=== PATIENT | female | born 1950 | race Two or more races ===

== ENCOUNTER 2024-09-21 17:29 | Emergency (ER) | payer OTHER, SELFPAY ==
--- NOTE | 2024-09-21 17:40 | PC.NURSE ---
ROXANNE; per report, PT COMING FROM [facility]. PT HAS ABOUT 3-4 BEERS WHEN PT STEPPED OUTSIDE, GOT DIZZY AND FELL BACKWARD. PT HIT THE BACK OF HEAD. BLEEDING CONTROLLED; NO LOC. PT HAS HX COPD AND BRAIN ANEURYSM. PT TAKES MEDS AT HOME FOR COPD. PT CONNECTED TO MONITORS AT THIS TIME.
[2024-09-21 17:41] VITALS: BP 116/55; PULSE 74; PULSE 79; RESP 18; TEMP 36.8; O2SAT 97; O2SAT 98; BMI 24.3
--- NOTE | 2024-09-21 18:00 | EKG_ITS ---
[facility] Test Date: 2024-09-21 Pat Name: FREIDA HERRING Department: Room: - Gender: Female Nursing Education Specialist: : 1950 Requested By: Moe Ness Order Number: [id number] Reading MD: Moe Ness Measurements Intervals [place] Rate: 79 P: 50 IL: 167 QRS: 61 QRSD: 81 T: 63 QT: 395 QTc: 453 Interpretive Statements SINUS RHYTHM No previous ECG available for comparison /store/S0/[id number]/ecg/[id number].pdf
--- NOTE | 2024-09-21 18:54 | XR_ITS ---
Examination: CT brain head without contrast. 2-D sagittal coronal reconstructions Date and time of exam:September 21, 2024 1904 hrs. Indications: Patient loss of consciousness today, fell with large hematoma posterior head CTDI: vol (mGy):47.7 DLP: (mGycm):960 Technique: Multiple CT axial sections of the brain have been obtained, 5 mm slice thickness. Contrast has not been administered. 2-D sagittal, coronal reconstructions have been obtained Low dose protocols were performed. One or more of the following dose reduction techniques were used; automated exposure control, adjustment of the mA and/or KV according to patient size, use of iterative reconstruction technique. Findings: No significant ventricular enlargement. 10 mm low-density lesion posterior right parietal occipital lobe, axial image 25 consistent with infarct, which may be acute Intra-axial or extra-axial hemorrhage density is not seen. No mass effect or midline shift Basal cisterns are not remarkable. Fourth ventricle is midline. Cranial vault intact. Impression: Negative for acute hemorrhage, mass effect or midline shift 10 mm infarct posterior right parietal occipital lobe, which may be acute, clinical correlation advised, consider brain MRI follow-up stroke protocol
--- NOTE | 2024-09-21 18:55 | XR_ITS ---
Examination: AP chest single view Technique one AP portable upright chest single view Exam date and time: September 13, 2024 1912 hrs. Indications: COPD history with patient fall today dizziness Findings: Normal heart size No aspiration pneumonia No pulmonary edema Prominent osteopenia Accentuation bronchovascular markings Impression: Bronchitis pattern
--- NOTE | 2024-09-21 18:55 | PD.EDFALL ---
ED Fall Injury RME/HPI General Chief Complaint: Fall Stated Complaint: FALL Time Seen by Provider: 09/21/24 18:51 Arrival date/time: 09/21/24 17:29 This is a 74-year-old female that is brought to the emergency room today because of a fall. Patient [place] and she had approximately 3 beers-4 and felt fine but once she walked outside in the wind hit her she said she felt dizzy and fell and hit the back of her head. Patient denies any loss of consciousness. Patient denies dizziness at this time. Patient reports a history of COPD, high blood pressure, and a brain aneurysm and is status post coils per patient. Review of Systems Review of Systems Systems Reviewed: All systems reviewed, normal except as documented Past Medical History Past Medical History Comments PMH COMMENT: SEE HPI ED Exam General General appearance: Present alert and in no apparent distress Head Head exam: Present other (SMALL SUPERFICIAL LACERATION TO BACK OF HEAD, BLEEDING CONTROLLED) Eye Eye exam: Present normal appearance, PERRL and EOMI ENT ENT exam: Present normal exam, normal oropharynx and mucous membranes moist Neck Neck exam: Present normal inspection, full ROM and trachea midline Chest Chest inspection: Present normal inspection and symmetric chest wall rise Respiratory Respiratory exam: Present normal lung sounds bilaterally Cardiovascular Cardiovascular exam: Present regular rate, normal rhythm and normal heart sounds Abdominal Exam Abdominal exam: Present soft Extremities Exam Extremities exam: Present normal inspection and full ROM Back Exam Back exam: Present normal inspection and full ROM Neurological Exam Neurological exam: Present alert, oriented X3 and CN II-XII intact Psychiatric Psychiatric exam: Present normal affect and normal mood Skin Skin exam: Present warm, dry, intact and normal color Course Quality Measures none Orders Category Date Time Status EKG (ED ONLY) *Do not use* NOW Care 09/21/24 18:[address] head/brain wo con Stat Exams 09/21/24 18:54 Completed EKG (ED Only) Stat Exams 09/21/24 18:00 Draft XR chest 1V Stat Exams 09/21/24 18:55 Completed BNP [B-Type Natriuretic Peptide] Stat Lab 09/21/24 18:02 Completed CBC Stat Lab 09/21/24 18:02 Completed Comprehensive Metabolic Panel Stat Lab 09/21/24 18:02 Completed PT [Prothrombin Time with INR] Stat Lab 09/21/24 18:02 Completed Troponin I Stat Lab 09/21/24 18:02 Completed Acetaminophen Tab [Tylenol ES Tab] Med 09/21/24 20:56 Discontinued 1,000 mg PO X1 ONE Vital Signs Vital signs: Vital Signs Temperature 98.2 F 09/21/24 17:41 Pulse Rate 79 09/21/24 17:41 Respiratory Rate 18 09/21/24 17:41 Blood Pressure 116/55 L 09/21/24 17:41 Pulse Oximetry (%) 97 09/21/24 17:41 Oxygen Delivery Method Room Air 09/21/24 17:41 Procedures -ED EKG Interpretation #1: Date of EK09/21/24 Time of EK:20 Rate: 79 Interpretation: Interpreted by me (Sinus rhythm) EKG Impression: No ectopy, Normal QRS and Normal intervals Fall MDM Narrative MDM Narrative:: cHEST X RAY SHOWS: Findings: Normal heart size No aspiration pneumonia No pulmonary edema Prominent osteopenia Accentuation bronchovascular markings Impression: Bronchitis pattern is also ct HEAD no FINDINGS Findings: No significant ventricular enlargement. 10 mm low-density lesion posterior right parietal occipital lobe, axial image 25 consistent with infarct, which may be acute Intra-axial or extra-axial hemorrhage density is not seen. No mass effect or midline shift Basal cisterns are not remarkable. Fourth ventricle is midline. Cranial vault intact. Impression: Negative for acute hemorrhage, mass effect or midline shift 10 mm infarct posterior right parietal occipital lobe, which may be acute, clinical correlation advised, consider brain MRI follow-up stroke protocol Discussed ct results with he did not feel that a noncontrast ct of head could show any acute infarct. Discussed with patient at length results of CT scan. Patient has no focal deficits. Patient reports I just had too much to drink and fell. Patient insisted on going home. Patient verbalizes that she will follow-up with primary provider in 1 to 2 days. I explained at length that we recommend that patient get an MRI. I let her know that it likely would not be done until the morning. Patient states she is not staying here till morning. Patient reports that if she does not feel good she will come back. Patient has a small Superficial laceration to posterior head. Very minimal old blood noted. I personally cleansed the wound again after tech cleanse wound. No matilda or sutures needed. Patient ambulated with a steady gait. Patient GCS 15. Patient with her at the bedside listening to discharge instructions. Has been try to convince her to stay but she did not want to stay. Patient data External records reviewed:: [facility] previous records Clinical information provided by:: patient Social determinants that could affect healthcare access:: none Patient has the following chronic illnesses:: see note How is presenting disease/condition affected by chronic disease/condition?: uneffected by Evaluation data The following diagnostics were reviewed and interpreted by me:: lab results, radiology exam(s) and EKG tracing(s) Lab and/or radiology exams considered but not ordered:: none Interpretation Summary: see note Medications / Prescriptions Medications or Prescriptions considered but not ordered:: none Medication administrations:: Medication Administration History Discontinued Medications Acetaminophen (Acetaminophen 500 Mg Tablet) 1,000 mg PO X1 ONE Stop: 09/21/24 20:57 Last Admin: 09/21/24 21:12 Dose: Not Given Documented By: JANET Non-Admin Reason: Patient Refused see mar Consultations Consultation(s) initiated? (list below): No Diagnosis Fall Differential Diagnosis: syncope and other (alcohol intoxication. head bleed ) Most likely diagnosis given after review of the tests above:: alcohol intoxication given by the hx of patient Admission Indicated Admission indicated?: not indicated Admission Request Was there a request for admission?: No Disposition Plan Disposition Plan: Discharge Discharge Attestation Discharge Attestation: The patient and all family members were given an opportunity to ask questions and understood the discharge instructions. Discharge instructions specifically effects, indications for sooner follow up or return to the emergency department, and the expected course of current diagnosis. Patient condition: Stable Discharge Plan Plan Patient Disposition: HOME (Self Care) Patient condition on transfer: Stable Prescriptions/Referrals Referrals: Elie Real MD [Primary Care Provider] - In 1 week Problem List Clinical Impression: Laceration of scalp, Head injury, Fall Patient/Caregiver Discharge Instructions Discharge Activity: activity as tolerated Education Materials: ED Head Injury (Adult) Additional Instructions: Please follow-up with primary provider in 1 to 2 days. Come back to the emergency room symptoms change or worsen. Pt had an abnormal CT scan and may need an mri in the future Print Language: Surinamese Stand Alone Forms: Rubina Award Info., Patient Portal Info Letter BILLIE/JOHNNY Supervising Physician BILLIE/JOHNNY Supervising Physician: shantanu
[2024-09-21 19:00] VITALS: BP 107/55; PULSE 74; RESP 17; TEMP 36.7; O2SAT 97
[2024-09-21 19:35] LABS: Basophils # (Auto) 0.1 Thou/mm3 (0.0-0.2); Basophils % (Auto) 1 % (0-2.5); Eosinophils # (Auto) 0.4 Thou/mm3 (0.0-0.5); Eosinophils % (Auto) 3 % (0-10); Hematocrit 40.6 % (36.0-46.0); Hemoglobin 13.3 g/dL (12.0-16.0); Immature Granulocytes % (Auto) 0 % (0-0); Immature Granulocytes Auto 0.04 Thou/mm3 (0.00-0.00); Lymphocytes # (Auto) 2.6 Thou/mm3 (1.0-4.8); Lymphocytes % (Auto) 21 % (10-50); Mean Corpuscular HGB Conc 32.8 g/dl (31.0-37.0); Mean Corpuscular Volume 95 fL (80-100); Monocytes # (Auto) 0.6 Thou/mm3 (0.0-0.8); Monocytes % (Auto) 5 % (0-12); Neutrophils # (Auto) 8.4 Thou/mm3 (1.8-7.7); Neutrophils % (Auto) 69 % (37-80); Nucleated Red Blood Cell % 0 /100 WBC (0); Platelet Count 182 Thou/mm3 (140-440); RDW Standard Deviation 42.5 fL (36.4-46.3); Red Blood Count 4.29 Miln/mm3 (4.00-5.20); White Blood Count 12.1 Thou/mm3 (3.6-11.0)
[2024-09-21 19:48] LABS: Prothrombin Time 10.9 Seconds (9.0-12.2)
[2024-09-21 19:54] LABS: Alanine Aminotransferase 16 U/L (10-49); Albumin, Serum 4.9 gm/dL (3.4-4.8); Albumin/Globulin Ratio 1.7 (1.2-2.2); Alkaline Phosphatase 63 U/L (46-116); Anion Gap 9 (7-16); BUN/Creatinine Ratio 13 Ratio (12-20); Bilirubin,Total 0.3 mg/dL (0.3-1.2); Blood Urea Nitrogen 15 mg/dL (9-23); Calcium 9.5 mg/dL (8.3-10.6); Calcium (Corrected) 9.5 mg/dL (8.5-10.1); Carbon Dioxide 24.9 mMol/L (20.0-31.0); Chloride 100 mMol/L (98-107); Creatinine (Component) 1.2 mg/dL (0.6-1.3); Estimated Creatinine Clearance 36.6 mL/min (>60); Globulin 2.9 gm/dL (2.3-3.5); Glucose 93 mg/dL (74-106); Osmolality,Calculated 269 (275-295); Potassium 3.7 mMol/L (3.4-5.1); Sodium 134 mMol/L (136-145); Total Protein 7.8 gm/dL (5.7-8.2); Troponin I < 0.020 ng/mL (0.0-0.045); eGFR 48 See Note
[2024-09-21 19:59] LABS: B-Type Natriuretic Peptide 23 pg/mL (0-100)
[2024-09-21 20:09] LABS: Aspartate Amino Transferase 19 U/L (0-34)
== END 2024-09-21 21:16 | disposition home or self-care (01) ==
PROVIDERS: Nurse Practitioner Family; Emergency Provider Emergency Medicine; PCP Family Medicine
DX: S01.01XA Laceration without foreign body of scalp, initial encounter (principal); W19.XXXA Unspecified fall, initial encounter; Y93.89 Activity, other specified; Y92.59 Other trade areas as the place of occurrence of the external cause; I10 Essential (primary) hypertension; J44.9 Chronic obstructive pulmonary disease, unspecified; Z86.79 Personal history of other diseases of the circulatory system
CPT/HCPCS: 36415; 70450; 71045; 80053; 83880; 84484; 85025; 85610; 93005; 99284

== ENCOUNTER → 2024-11-15 | Outpatient (CLI) | payer OTHER, SELFPAY ==
[2024-11-15 08:12] LABS: Collection Type, Urine Clean Catch; Squamous Epithelial Cell,Urine 0 /hpf (0-5)
[2024-11-15 08:52] LABS: Bilirubin,Urine Negative (Negative); Blood,Urine Negative (Negative); Clarity,Urine Clear (Clear/Hazy); Color,Urine Lt-Yellow (Lt Yel-Yel); Glucose, Urine Negative (Negative); Hyaline Casts,Urine < 1 /hpf (0-1); Ketones,Urine Negative (Negative); Leukocyte Esterase,Urine Negative (Negative); Nitrite,Urine Negative (Negative); PH,Urine 6.5 (5.0-7.0); Protein,Urine Negative (Neg - Trace); RBC,Urine 3 /hpf (0-3); Specific Gravity,Urine 1.014 (1.001-1.035); Urobilinogen,Urine Negative mg/dL (0.0-1.0); WBC,Urine < 1 /hpf (0-5)
[2024-11-15 08:57] LABS: Alanine Aminotransferase 11 U/L (10-49); Albumin, Serum 4.7 gm/dL (3.4-4.8); Albumin/Globulin Ratio 1.7 (1.2-2.2); Alkaline Phosphatase 65 U/L (46-116); Anion Gap 9 (7-16); Aspartate Amino Transferase 12 U/L (0-34); BUN/Creatinine Ratio 19 Ratio (12-20); Bilirubin,Total 0.5 mg/dL (0.3-1.2); Blood Urea Nitrogen 23 mg/dL (9-23); Calcium 10.4 mg/dL (8.3-10.6); Calcium (Corrected) 10.4 mg/dL (8.5-10.1); Carbon Dioxide 28.4 mMol/L (20.0-31.0); Cardiac Risk Estimate 4.9 RATIO (3.7-5.6); Chloride 104 mMol/L (98-107); Cholesterol 228 mg/dL (132-200); Creatinine (Component) 1.2 mg/dL (0.6-1.3); Globulin 2.7 gm/dL (2.3-3.5); Glucose 95 mg/dL (74-106); HDL Cholesterol 47 mg/dL (40-60); LDL Cholesterol,Calculated 138 mg/dL (0-130); Osmolality,Calculated 284 (275-295); Potassium 4.4 mMol/L (3.4-5.1); Sodium 141 mMol/L (136-145); Thyroid Stimulating Hormone 3.24 uIU/mL (0.55-4.78); Total Protein 7.4 gm/dL (5.7-8.2); Triglycerides 213 mg/dL (30-150); Uric Acid 6.9 mg/dL (3.1-7.8); eGFR 48 See Note
== END | disposition home or self-care (01) ==
PROVIDERS: PCP Family Medicine; Referring Provider Family Medicine; Visit Provider Family Medicine
DX: Z00.00 Encounter for general adult medical examination without abnormal findings (principal); I10 Essential (primary) hypertension; J44.9 Chronic obstructive pulmonary disease, unspecified; I67.1 Cerebral aneurysm, nonruptured; E78.2 Mixed hyperlipidemia; E79.0 Hyperuricemia without signs of inflammatory arthritis and tophaceous disease
CPT/HCPCS: 36415; 80053; 80061; 81001; 84443; 84550

== ENCOUNTER → 2025-07-18 | Outpatient (CLI) | payer OTHER, SELFPAY ==
[2025-07-18 09:16] LABS: Alanine Aminotransferase 10 U/L (10-49); Albumin, Serum 4.9 gm/dL (3.4-4.8); Albumin/Globulin Ratio 2.2 (1.2-2.2); Alkaline Phosphatase 55 U/L (46-116); Anion Gap 12 (7-16); Aspartate Amino Transferase 16 U/L (0-34); BUN/Creatinine Ratio 15 Ratio (12-20); Bilirubin,Total 0.4 mg/dL (0.3-1.2); Blood Urea Nitrogen 21 mg/dL (9-23); Calcium 9.9 mg/dL (8.3-10.6); Calcium (Corrected) 9.9 mg/dL (8.5-10.1); Carbon Dioxide 26.2 mMol/L (20.0-31.0); Cardiac Risk Estimate 3.0 RATIO (3.7-5.6); Chloride 105 mMol/L (98-107); Cholesterol 110 mg/dL (132-200); Creatinine (Component) 1.4 mg/dL (0.6-1.3); Globulin 2.2 gm/dL (2.3-3.5); Glucose 110 mg/dL (74-106); HDL Cholesterol 37 mg/dL (40-60); LDL Cholesterol,Calculated 39 mg/dL (0-130); Osmolality,Calculated 288 (275-295); Potassium 3.9 mMol/L (3.4-5.1); Sodium 143 mMol/L (136-145); Total Protein 7.1 gm/dL (5.7-8.2); Triglycerides 172 mg/dL (30-150); Uric Acid 5.7 mg/dL (3.1-7.8); eGFR 40 See Note
== END | disposition home or self-care (01) ==
PROVIDERS: PCP Family Medicine; Referring Provider Family Medicine; Visit Provider Family Medicine
DX: E78.2 Mixed hyperlipidemia (principal); I12.9 Hypertensive chronic kidney disease with stage 1 through stage 4 chronic kidney disease, or unspecified chronic kidney disease; N18.31 Chronic kidney disease, stage 3a; E79.0 Hyperuricemia without signs of inflammatory arthritis and tophaceous disease
CPT/HCPCS: 36415; 80053; 80061; 84550

== ENCOUNTER → 2025-07-22 | Outpatient (CLI) | payer OTHER, SELFPAY ==
[2025-07-22 13:23] LABS: Collection Type, Urine Clean Catch
[2025-07-22 13:58] LABS: Bilirubin,Urine Negative (Negative); Blood,Urine Negative (Negative); Clarity,Urine Clear (Clear/Hazy); Color,Urine Lt-Yellow (Lt Yel-Yel); Glucose, Urine Negative (Negative); Hyaline Casts,Urine < 1 /hpf (0-1); Ketones,Urine Negative (Negative); Leukocyte Esterase,Urine Negative (Negative); Nitrite,Urine Negative (Negative); PH,Urine 6.5 (5.0-7.0); Protein,Urine Negative (Neg - Trace); RBC,Urine 1 /hpf (0-3); Specific Gravity,Urine 1.011 (1.001-1.035); Squamous Epithelial Cell,Urine 2 /hpf (0-5); Urobilinogen,Urine Negative mg/dL (0.0-1.0); WBC,Urine < 1 /hpf (0-5)
== END | disposition home or self-care (01) ==
LOC: SLDO 13:17
PROVIDERS: Referring Provider Family Medicine; Visit Provider Family Medicine
DX: N30.00 Acute cystitis without hematuria (principal)
CPT/HCPCS: 81001; 87086

== ENCOUNTER → 2025-09-03 | Outpatient (CLI) | payer OTHER, SELFPAY ==
--- NOTE | 2025-09-03 14:20 | XR_ITS ---
Examination: Bone densitometry Date and time of exam: September 03, 2025, 1421 hours INDICATIONS: Menopause age 52, family history Father hip fracture vitamin D and calcium 3 years Technique: Lumbar spine and hip total bone mineralization values of an calculated. Peak reference and age match control results have been displayed. Findings: Lumbar spine total bone mineralization is 0.811 gm/cm2. This is 2.1 standard deviations below peak reference. This is 0.1 standard deviations above age-matched controls. Hip total bone mineralization is 0.699 gm/cm2 This is 2.0 standard deviations below peak reference. This is 0.3 standard deviations below age-matched controls Impression: There is osteopenia based on lumbar spine measurements. There is osteoporosis based on hip measurements
== END | disposition home or self-care (01) ==
LOC: CDIM 13:41
PROVIDERS: Referring Provider Family Medicine; Visit Provider Family Medicine
DX: M81.0 Age-related osteoporosis without current pathological fracture (principal); M85.89 Other specified disorders of bone density and structure, multiple sites
CPT/HCPCS: 77080